=== PATIENT | male | born 1985 | race Caucasian/White ===

== ENCOUNTER 2018-03-28 16:54 | Emergency (ER) | payer SELFPAY ==
[~2018-03-28] VITALS: Ht 180.3 cm; Wt 88.5 kg
[~2018-03-28 16:54] MED LIST: HYOS0.1283 SL; ONDA8TAB13 PO
--- NOTE | 2018-03-28 17:23 | ED Upper Extremity ---
General Chief Complaint: Upper Extremity Stated Complaint: L HAND INFLAMMATION Nursing Triage Note: ARRIVED VIA AMB TO TRIAGE. COMPLAINS OF BILAT HANDS WITH THE LEFT BEING THE WORSE BEING DRY AND CRACKING FOR SEVERAL MONTHS NOW. THINKS HE HAS A UNDIAGNOSED CONDTITION. Nursing Sepsis Screen: No Definite Risk Source: patient Exam Limitations: no limitations History of Present Illness Date Seen by Provider: Mar 28, 2018 Time Seen by Provider: 17:18 Initial Comments To ER with reports of redness cracking itching and scaling to both of his hands volar and dorsal surfaces for about 3 months now. He's never had this before. He occasionally has had some lesions on his scalp. He's tried topical steroids with temporary relief but these skin conditions come back. 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 He denies any fevers or chills. Seeks care today because of the swelling associated with this and he is having difficulty clenching his fists Onset: other Severity: moderate Pain/Injury Location: bilateral hand Modifying Factors: Worse With Movement Allergies and Home Medications Allergies Coded Allergies: No Known Drug Allergies (Unverified , 09/20/12) Patient Home Medication List Home Medication List Reviewed: Yes Review of Systems Constitutional: see HPI EENTM: see HPI Respiratory: no symptoms reported Cardiovascular: no symptoms reported Genitourinary: no symptoms reported Musculoskeletal: no symptoms reported Skin: see HPI Psychiatric/Neurological: No Symptoms Reported Past Dvvbbtm-Wluifj-Dimfxh Hx Patient Social History Alcohol Use: Denies Use Recreational Drug Use: No Smoking Status: Never a Smoker Recent Foreign Travel: No Contact w/Someone Who Travel: No Recent Infectious Disease Expo: No Immunizations Up To Date Tetanus Booster (TDap): Unknown Seasonal Allergies Seasonal Allergies: Yes Past Medical History Surgeries: Yes Appendectomy Respiratory: No Cardiac: No Neurological: No Reproductive Disorders: No Sexually Transmitted Disease: No HIV/AIDS: No Genitourinary: No Gastrointestinal: No Musculoskeletal: Yes Fractures Endocrine: No Cancer: No Psychosocial: Yes Anxiety, Depression Integumentary: Yes Eczema Blood Disorders: No Adverse Reaction/Blood Tranf: No Family Medical History No Pertinent Family Hx Physical Exam Vital Signs Vital Signs - First Documented 03/28/18 17:00 Temp 96.1 Pulse 69 Resp 16 B/P (MAP) 106/80 (89) Pulse Ox 97 O2 Delivery Room Air Capillary Refill : Less Than 3 Seconds Height, Weight, BMI Height: 5'11.00" Weight: 195lbs. oz. 88.469753ir; BMI Method:Stated General Appearance: WD/WN, no apparent distress HEENT: PERRL/EOMI, normal ENT inspection Neck: non-tender, full range of motion Respiratory: no respiratory distress, no accessory muscle use Shoulder: normal inspection, non-tender Elbow/Forearm: normal inspection, non-tender Wrist: Yes normal inspection, Yes non-tender Hand: Bilateral (erythema and scaling fissuring of each hand affecting the dorsal aspect of the hand and the dorsal and volar surface of the fingers. There is some fissuring as well. Minor amount of swelling which makes it difficult for him to close his hand. Given the fissures I would have some concerns about a secondary bacterial infection so I'll prescribe some Keflex. We 'll do oral and topical steroid creams. I'll have him follow-up with dermatology.) Neurologic/Psychiatric: alert, normal mood/affect, oriented x 3 Skin: other Progress/Results/Core Measures Results/Orders Vital Signs/I&O 03/28/18 17:00 Temp 96.1 Pulse 69 Resp 16 B/P (MAP) 106/80 (89) Pulse Ox 97 O2 Delivery Room Air Blood Pressure Mean: 89 Departure Impression Primary Impression: Atopic dermatitis Qualified Codes: L20.9 - Atopic dermatitis, unspecified Disposition: 01 HOME, SELF-CARE Condition: Stable Departure-Patient Inst. Decision time for Depature: 17:22 Referrals: NO,LOCAL PHYSICIAN (PCP) Primary Care Physician BROOKE ALAS MD Patient Instructions: Eczema (Atopic Dermatitis) Add. Discharge Instructions: 1. Apply the steroid cream as directed. Take the oral steroids and oral antibiotics as directed. Call Dr. Loera on Saturday to make an appointment to be seen. All discharge instructions reviewed with patient and/or family. Voiced understanding. Scripts Betamethasone Dipropionate (Betamethasone Dipropionate) 15 Gm Cream..g. 1 GM TP BID for 6 Days, #2 TUBE Prov: ZOHAIB BURLESON APRN 03/28/18 Prednisone (Prednisone) 10 Mg Tab.ds.pk 10 MG PO DAILY, #20 EA Take 5 tabs on day 1& 2, decrease by 1 tab(10MG)daily. Prov: ZOHAIB BURLESON APRN 03/28/18 Cephalexin (Keflex) 500 Mg Capsule 500 MG PO TID, #15 CAP Prov: ZOHAIB BURLESON APRN 03/28/18 ZOHAIB BURLESON APRN Mar 28, 2018 17:23
[2018-03-28] MEDS ORDERED: PRED10TA22 PO (17:31)
[2018-03-28] MEDS ORDERED: CEPH-507 PO (17:31)
[2018-03-28] MEDS ORDERED: BETA15CR4 TP (17:33)
[2018-03-28 17:41] VITALS: BP 106/80
== END 2018-03-28 17:41 | disposition home or self-care (01) ==
LOC: EDUNIT# 16:54 → ER 16:57
DX: L20.9 Atopic dermatitis, unspecified (principal); F32.9 Major depressive disorder, single episode, unspecified; F41.9 Anxiety disorder, unspecified; Z90.49 Acquired absence of other specified parts of digestive tract
CPT/HCPCS: 99282

== ENCOUNTER 2018-08-17 04:03 | Emergency (ER) | payer SELFPAY ==
[~2018-08-17] VITALS: Ht 180.3 cm; Wt 83.9 kg
[~2018-08-17 04:03] MED LIST changes: +BETA15CR4 TP; +CEPH-507 PO; +PRED10TA22 PO
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
--- OUTSIDE RECORDS SUMMARY | 2018-08-17 04:12 | XMS REPORT ---
Author Author Javad SOPHIA Organization [facility] Address [address] [place] [address] Care Team Providers Care Head Charger Name Role Phone SOPHIA Farnsworth Unavailable PROBLEMS Type Condition ICD9-CM Code THU14-WN Code Onset Dates Condition Status SNOMED Code Problem Skin malfunction arising from mental factors 306.3 Active 397892264 Problem Disturbance of skin sensation 782.0 Active 077232799 Problem Other acne 706.1 Active 32156918 Problem Contact dermatitis and other eczema, due to unspecified cause 692.9 Active 92134982 Problem Attention deficit disorder of childhood with hyperactivity 314.01 Active 897977105 Problem Routine general medical examination at health care facility V70.0 Active 439534692 Problem Pain in joint, shoulder region 719.41 Active 714214085 Problem Generalized anxiety disorder F41.1 Active 70402097 Problem ADHD, predominantly inattentive type F90.0 Active 97050977 Problem Screening examination for venereal disease V74.5 Active 574046137 Problem Acute upper respiratory infections of unspecified site 465.9 Active 69705177 Problem Generalized anxiety disorder 300.02 Active 94858446 Problem Social phobia 300.23 Active 64345359 ALLERGIES Substance Reaction Event Type Date Status Penicillin V Potassium Unknown Drug Allergy Mar, Active SOCIAL HISTORY No smoking Hx information available PLAN OF CARE Activity Details Follow Up 4 Weeks Reason: VITAL SIGNS Height 71 in 2016-03-15 Weight 193.9 lbs 2016-03-15 Heart Rate 64 bpm 2016-03-15 Respiratory Rate 16 2016-03-15 BMI 27.04 kg/m2 2016-03-15 Blood pressure systolic 113 mmHg 2016-03-15 Blood pressure diastolic 67 mmHg 2016-03-15 MEDICATIONS Medication Instructions Dosage Frequency Start Date End Date Duration Status Atomoxetine HCl 25 MG Orally daily 1 capsule every am X 2 weeks then 2 caps every am 24h Mar, 30 day(s) Active RESULTS No Results PROCEDURES Procedure Date Ordered Related Diagnosis Body Site MH Office Visit, Est Pt., Level 4 Mar 15, 2016 IMMUNIZATIONS No Known Immunizations
--- OUTSIDE RECORDS SUMMARY | 2018-08-17 04:12 | XMS REPORT ---
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 Name Role Phone KEYLA MARTINEZ Unavailable PROBLEMS Type Condition ICD9-CM Code MJP21-CH Code Onset Dates Condition Status SNOMED Code Problem Contact dermatitis and other eczema, due to unspecified cause 692.9 Active 41942910 Problem Attention deficit disorder of childhood with hyperactivity 314.01 Active 187522200 Problem Acute upper respiratory infections of unspecified site 465.9 Active 87032043 Problem History of attention deficit hyperactivity disorder (ADHD) Z86.59 Active 252065653 Problem Generalized anxiety disorder F41.1 Active 92663037 Problem Social phobia 300.23 Active 58541438 Problem Skin malfunction arising from mental factors 306.3 Active 195953224 Problem ADHD, predominantly inattentive type F90.0 Active 85513896 Problem Generalized anxiety disorder 300.02 Active 16444161 Problem Routine general medical examination at health care facility V70.0 Active 979491694 Problem Disturbance of skin sensation 782.0 Active 509825775 Problem Pain in joint, shoulder region 719.41 Active 150757308 Problem Screening examination for venereal disease V74.5 Active 214947615 Problem Other acne 706.1 Active 34699637 ALLERGIES Substance Reaction Event Type Date Status Penicillin V Potassium Unknown Drug Allergy Aug, Active ENCOUNTERS Encounter Location Date Diagnosis [facility] [id number], [place] [address] Aug, History of attention deficit hyperactivity disorder (ADHD) Z86.59 and Hx of high risk medication treatment Z92.29 [facility] [id number], [place] [address] Aug, Allergic contact dermatitis, unspecified trigger L23.9 [facility] [id number], [place] [address] Mar, ADHD, predominantly inattentive type F90.0 and Generalized anxiety disorder F41.1 [facility] [id number] [place] [address] Jan, Generalized anxiety disorder F41.1 and ADHD, predominantly inattentive type F90.0 [facility] [id number] [place] [address] Oct, Post-nasal drip 784.91 ; Cough 786.2 and Environmental and seasonal allergies 477.8 [facility] [id number] [place] [address] Jun, [facility] [id number] [place] [address] Jun, [facility] [id number] [place] [address] May, [facility] [id number] [place] [address] May, [facility] [id number] [place] [address] Jan, [facility] [id number] [place] [address] Jan, [facility] [id number] [place] [address] Dec, [facility] [id number] [place] [address] Dec, [facility] [id number] [place] [address] Nov, [facility] [id number] [place] [address] Aug, [facility] [id number] [place] [address] May, [facility] [id number] [place] [address] May, [facility] [address], [place] [address] May, [facility] [address], [place] [address] May, [facility] [address], [place] [address] July, [facility] [address], [place] [address] July, [facility] [address] [place] [address] July, [facility] [address], [place] [address] July, [facility] [address], [place] [address] May, [facility] [address], [place] [address] Apr, [facility] [address], [place] [address] Jun, [facility] [address], [place] [address] Jun, [facility] [id number], [place] [address] Mar, [facility] [id number], [place] [address] Jan, IMMUNIZATIONS No Known Immunizations SOCIAL HISTORY Never Assessed REASON FOR VISIT Physical - PT wanted a general checkup-ROMERO dao, pt have rash on hands and ric[address] st PLAN OF CARE Activity Details Follow Up prn Reason:rash. Make apt with me for ADHD/lab work VITAL SIGNS Height 71 in 2017-09-25 Weight 202.3 lbs 2017-09-25 Temperature 97.5 degrees Fahrenheit 2017-09-25 Heart Rate 68 bpm 2017-09-25 Respiratory Rate 16 2017-09-25 BMI 28.21 kg/m2 2017-09-25 Blood pressure systolic 102 mmHg 2017-09-25 Blood pressure diastolic 64 mmHg 2017-09-25 MEDICATIONS Medication Instructions Dosage Frequency Start Date End Date Duration Status Clobetasol Propionate 0.05 % Externally Twice a day to affected area 1 application to affected area Aug, Sep, 10 day(s) Active Sudafed 24 Hour 240 MG Orally Once a day 1 tablet as needed 24h Oct, 30 day(s) Not-Taking Atomoxetine HCl 25 MG Orally daily 1 capsule every am X 2 weeks then 2 caps every am 24h Mar, 30 day(s) Not-Taking RESULTS No Results PROCEDURES No Known procedures INSTRUCTIONS MEDICATIONS ADMINISTERED No Known Medications MEDICAL (GENERAL) HISTORY Type Description Date Medical History ADHD Surgical History Appendectomy Hospitalization History Surgery
--- OUTSIDE RECORDS SUMMARY | 2018-08-17 04:12 | XMS REPORT | Continuity of Care Document ---
Author Organization Unknown Address Unknown Allergies Active Description Code Type Severity Reaction Onset Reported/Identified Relationship to Patient Clinical Status Yes Penicillins Drug Allergy 07/19/2011 Yes Penicillins Drug Allergy N/A N/A 07/19/2011 Yes No Known Drug Allergies [id number] Drug Allergy Unknown N/A 09/20/2012 Medications There is no data. Problems Date Dx Coded Attending Type Code Diagnosis Diagnosed By 01/07/2008 POLO ALEJO PSYD V74.1 SCREENING EXAMINATION FOR PULMONARY TUBERCULOSIS 01/07/2008 V74.1 SCREENING EXAMINATION FOR PULMONARY TUBERCULOSIS 01/07/2008 V74.1 SCREENING EXAMINATION FOR PULMONARY TUBERCULOSIS 01/07/2008 RACHEL BELL DO V74.1 SCREENING EXAMINATION FOR PULMONARY TUBERCULOSIS 01/07/2008 RACHEL BELL DO V74.1 SCREENING EXAMINATION FOR PULMONARY TUBERCULOSIS 01/07/2008 DANIEL ASTORGA APRN A V74.1 SCREENING EXAMINATION FOR PULMONARY TUBERCULOSIS 07/19/2011 POLO ALEJO PSYD 306.3 SKIN DISORDER ARISING FROM MENTAL FACTORS 07/19/2011 POLO ALEJO PSYD 706.1 OTHER ACNE 07/19/2011 306.3 SKIN DISORDER ARISING FROM MENTAL FACTORS 07/19/2011 706.1 OTHER ACNE 07/19/2011 306.3 SKIN DISORDER ARISING FROM MENTAL FACTORS 07/19/2011 706.1 OTHER ACNE 07/19/2011 RACHEL BELL DO 306.3 SKIN DISORDER ARISING FROM MENTAL FACTORS 07/19/2011 RACHEL BELL DO 706.1 OTHER ACNE 07/19/2011 RACHEL BELL DO 306.3 SKIN DISORDER ARISING FROM MENTAL FACTORS 07/19/2011 RACHEL BELL DO 706.1 OTHER ACNE 07/19/2011 DANIEL ASTORGA APRN A 306.3 SKIN DISORDER ARISING FROM MENTAL FACTORS 07/19/2011 DANIEL ASTORGA APRN A 706.1 OTHER ACNE 04/15/2012 POLO ALEJO PSYD 300.02 AN GEN ANXIETY 04/15/2012 POLO ALEJO PSYD L 300.23 AN SOCIAL PHOBIA 04/15/2012 300.02 AN GEN ANXIETY 04/15/2012 300.23 AN SOCIAL PHOBIA 04/15/2012 300.02 AN GEN ANXIETY 04/15/2012 300.23 AN SOCIAL PHOBIA 04/15/2012 BELL DO, RACHEL K 300.02 AN GEN ANXIETY 04/15/2012 BELL DO, RACHEL K 300.23 AN SOCIAL PHOBIA 04/15/2012 BELL DO, RACHEL K 300.02 AN GEN ANXIETY 04/15/2012 BELL DO, RACHEL K 300.23 AN SOCIAL PHOBIA 04/15/2012 DANIEL ASTORGA APRN A 300.02 AN GEN ANXIETY 04/15/2012 STAR ASTORGA APRNIDI A 300.23 AN SOCIAL PHOBIA 08/15/2012 465.9 UPPER RESPIRATORY INFECTION 08/15/2012 782.0 numbness (hypesthesia) 08/15/2012 V74.5 visit for: screening exam STD 08/15/2012 465.9 UPPER RESPIRATORY INFECTION 08/15/2012 782.0 numbness (hypesthesia) 08/15/2012 V74.5 visit for: screening exam STD 08/15/2012 BELL DO RACHEL K 465.9 UPPER RESPIRATORY INFECTION 08/15/2012 BELL DO, RACHEL K 782.0 numbness (hypesthesia) 08/15/2012 BELL DO RACHEL K V74.5 visit for: screening exam STD 08/15/2012 BELL DO RACHEL K 465.9 UPPER RESPIRATORY INFECTION 08/15/2012 BELL DO RACHEL K 782.0 numbness (hypesthesia) 08/15/2012 BELL DO RACHEL K V74.5 visit for: screening exam STD 08/15/2012 STAR ASTORGA APRNIDI A 465.9 UPPER RESPIRATORY INFECTION 08/15/2012 STAR ASTORGA APRNIDI A 782.0 numbness (hypesthesia) 08/15/2012 STAR ASTORGA APRNIDI A V74.5 visit for: screening exam STD 09/21/2012 DELPHINE FALLON, RADHA Gomez Ot 276.1 HYPOSMOLALITY 09/21/2012 DELPHINE FALLON, RADHA Gomez Ot 540.9 ACUTE APPENDICITIS NOS 01/25/2014 DANIEL ASTORGA APRN 692.9 CONTACT DERMATITIS AND OTHER ECZEMA UNSPECIFIED CAUSE 04/07/2015 INDRA TOURE Ot R10.84 GENERALIZED ABDOMINAL PAIN 04/07/2015 INDRA TOURE Ot R11.2 NAUSEA WITH VOMITING, UNSPECIFIED 04/07/2015 INDRA TOURE Ot R19.7 DIARRHEA, UNSPECIFIED 04/07/2015 INDRA TOURE Ot R50.9 FEVER, UNSPECIFIED Procedures Code Description [place] [address] PSYCH DIAGNOSTIC EVALUATION 04/15/2012 10904 ROUTINE VENIPUNCTURE 08/15/2012 81403 A1C (IN-HOUSE) 08/15/2012 25235 CBC 08/15/2012 93274 CMP 08/15/2012 6692339 GFR CALC (RESULT ONLY) 08/15/2012 15230 TSH 08/16/2012 84582 VIT B 12 08/16/2012 34443 HEPATITIS PROFILE 08/16/2012 60876 HIV ANTIBODIES (RML) 08/16/2012 34563 SYPHILIS TEST 08/16/2012 34076 UA W/ CULTURE IF INDICATED 08/28/2012 61501 GC/CHLAM URINE (STATE) 08/28/2012 47.01 LAPAROSCOP APPENDECTOMY 09/20/2012 06860 TB TEST INTRADERMAL 05/18/2013 38113 TB TEST INTRADERMAL 05/25/2013 32198 ROUTINE VENIPUNCTURE 01/25/2014 53138 SYPHILLIS-STATE LAB 01/25/2014 07122 HIV (STATE LAB) 01/25/2014 99366 GC/CHLAM URINE (STATE) 01/25/2014 Results There is no data. Encounters ACCT No. Visit Date/Time Discharge Status Pt. Type Provider Facility Loc./Unit Complaint [id number] 01/25/2014 15:15:00 01/25/2014 23:59:59 CLS Outpatient STAR ASTORGA APRNHEIDY Amaro [id number] 05/25/2013 14:03:00 05/25/2013 23:59:59 CLS Outpatient RACHEL BELL DO [id number] 05/18/2013 12:49:00 05/18/2013 23:59:59 CLS Outpatient RACHEL BELL DO [id number] 04/15/2012 11:57:00 04/15/2012 23:59:59 CLS Outpatient POLO ALEJO PSYD [id number] 08/28/2012 14:57:00 Document Registration [id number] 08/15/2012 11:12:00 Document Registration [id number] 06/26/2018 16:00:00 06/26/2018 23:59:59 [facility] [id number] 03/28/2018 16:57:00 03/28/2018 17:41:00 DIS Emergency ZOHAIB BURLESON APRN [facility] ER L HAND INFLAMMATION [id number] 04/07/2015 19:26:00 04/07/2015 21:07:00 DIS Emergency INDRA TOURE [facility] ER [id number] 09/20/2012 20:45:00 09/21/2012 11:55:00 DIS Inpatient DELPHINE FALLON, RADHA Gomez [facility] SURGICAL ACUTE APPENDICITIS [id number] 08/17/2018 04:07:00 ACT Emergency FIFI MCCRARY DO [facility] ER FS VOLUNTARY MENTAL HEALTH SCREENIN/LACERATION ON RIG
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
[2018-08-17 04:49] VITALS: BP 118/79
--- NOTE | 2018-08-17 06:25 | Diagnostic Imaging Report ---
INDICATION: Pain. Two views of the right hand were obtained. FINDINGS: The osseous alignment is normal. There is no acute fracture or dislocation. The soft tissues are unremarkable. IMPRESSION: No acute abnormality. Dictated by: Dictated on workstation # [id number]
== END 2018-08-17 04:49 | disposition home or self-care (01) ==
LOC: EDUNIT# 04:03 → ER FS 04:07
DX: S61.216A Laceration without foreign body of right little finger without damage to nail, initial encounter (principal); S61.511A Laceration without foreign body of right wrist, initial encounter; F41.9 Anxiety disorder, unspecified; F32.9 Major depressive disorder, single episode, unspecified; Z90.49 Acquired absence of other specified parts of digestive tract; W26.8XXA Contact with other sharp object(s), not elsewhere classified, initial encounter
CPT/HCPCS: 73120

== ENCOUNTER 2021-05-06 10:59 | Emergency (ER) | payer SELFPAY ==
[~2021-05-06] VITALS: Ht 180 cm; Wt 96.0 kg
[2021-05-06] MEDS ORDERED: ERYTHROMYCIN OPHTH OINT 1 GM (SINGLE USE) TUBE OP STA (11:11)
[2021-05-06 11:13] VITALS: BP 155/81
--- NOTE | 2021-05-06 11:17 | ED EENT ---
History of Present Illness General Chief Complaint: Eye Problems Stated Complaint: ALLERGIES/GIOVANI EYE REDNESS Source: patient Exam Limitations: no limitations History of Present Illness Date Seen by Provider: May 06, 2021 Time Seen by Provider: 11:00 Initial Comments 35yoM with no significant PMH coming in due to red and itchy eyes. This has been going on for a couple of weeks. He says he has new guinea pigs that he believes he is allergic to. He says he is allergic to a lot of animals. Started right after he was around them. Benadryl does seem to help the itchiness which is moderate, constant, and worsening. He did finally just get rid of the animals. He cannot think of any new foods, soaps, or anything else he is around that could be causing this. Denies any fever, chest pain, vision changes, shortness of breath, abdominal pain, nausea, vomiting, diarrhea, weakness, numbness, or any other concerns. He says he does not have a rash anywhere else on his body. Allergies and Home Medications Allergies Coded Allergies: No Known Drug Allergies (Unverified , 08/17/18) Patient Home Medication List Home Medication List Reviewed: Yes Betamethasone Dipropionate (Betamethasone Dipropionate) 15 Gm Cream..g., 1 GM TP BID Prescribed by: ZOHAIB BURLESON on 03/28/18 173 Cephalexin (Keflex) 500 Mg Capsule, 500 MG PO TID Prescribed by: ZOHAIB BURLESON on 03/28/18 173 Prednisone (Prednisone) 10 Mg Tab.ds.pk, 10 MG PO DAILY Prescribed by: ZOHAIB BURLESON on 03/28/18 173 Review of Systems Review of Systems Constitutional: No chills, No fever Eyes: Denies Blurred Vision Ears: Denies Dizziness Nose: denies congestion Mouth: no symptoms reported Throat: no symptoms reported; denies pain, denies swelling, denies neck stiffness Respiratory: no symptoms reported; No short of breath Cardiovascular: no symptoms reported Gastrointestinal: no symptoms reported Musculoskeletal: no symptoms reported Skin: rash Neurological: No Symptoms Reported Hematologic/Lymphatic: No Symptoms Reported Immunological/Allergic: no symptoms reported All Other Systems Reviewed Negative Unless Noted: Yes Past Szrwdku-Znzjrm-Rfvxlf Hx Patient Social History Tobacco Use?: No Immunizations Up To Date Tetanus Booster (TDap): Less than 5yrs Seasonal Allergies Seasonal Allergies: Yes Past Medical History Surgeries: Yes Appendectomy Respiratory: No Cardiac: No Neurological: No Reproductive Disorders: No Sexually Transmitted Disease: No HIV/AIDS: No Genitourinary: No Gastrointestinal: No Musculoskeletal: Yes Fractures Endocrine: No HEENT: No Cancer: No Psychosocial: Yes Anxiety, Depression Integumentary: Yes Eczema Blood Disorders: No Adverse Reaction/Blood Tranf: No Family Medical History No Pertinent Family Hx Visual Acuity : Vision Acuity Degree: 20/20 Physical Exam Height, Weight, BMI Height: 5'11.00" Weight: 185lbs. oz. 83.576010xk; BMI Method:Stated General Appearance: WD/WN, no apparent distress Eyes: bilateral eye PERRL, bilateral eye EOMI, bilateral eye other (Bilateral eyes with erythematous, crusting, blanching skin around the eyelids, no edema periorbitally, cobblestoning on the inner conjunctive a, otherwise his conjunctive are white) Ears: bilateral ear auricle normal Nose: normal inspection Mouth/Throat: normal mouth inspection, pharynx normal Neck: non-tender, full range of motion, supple, normal inspection Cardiovascular: regular rate, rhythm, no edema, no murmur Respiratory: chest non-tender, lungs clear, normal breath sounds, no respiratory distress, no accessory muscle use Gastrointestinal: normal bowel sounds, non tender, soft; No guarding Neurologic/Psychiatric: furniture servicer II-XII nml as tested, no motor/sensory deficits, alert, normal mood/affect Skin: normal color, warm/dry Progress/Results/Core Measures Progress Progress Note : Progress Note 35-year-old male with above history coming in due to red and itchy eyes. ABCs were intact and vitals were stable on presentation. Visual acuity normal and his exam is consistent with an allergic dermatitis around his eyes. We will give him erythromycin ointment to prevent chance of infection. I recommend gentle moisturization with something such as petroleum around the skin of his eyes and we will send a Medrol Dosepak given the extent of it. We will also recommend cetirizine and avoidance of triggers which right now seems to be the guinea pigs that are gone. I told him if he does not have significant improvement in the next several days then he needs to come back to be seen again. He does not have any involvement in his lips, genitals, hands, and otherwise has no other red flags. I believe he is stable for discharge with outpatient follow-up. He was sent home with strict return precautions. Departure Impression Primary Impression: Allergic conjunctivitis Qualified Codes: H10.13 - Acute atopic conjunctivitis, bilateral Disposition: 01 HOME, SELF-CARE Condition: Stable Departure-Patient Inst. Decision time for Depature: 11:18 Referrals: ENRIQUE ESTEVEZ APRN (PCP/Family) Primary Care Physician Patient Instructions: Conjunctivitis (Noninfectious Pinkeye) Add. Discharge Instructions: Please take the steroids as directed. Also please take the Zyrtec which is also known as cetirizine for at least the next month. Use something gentle to moisturize your face such as regular petroleum jelly, Aquaphor, or Cerave. Take progress footers at least every other day that way if you were to be seen again someone could see the progression. If things are not significantly better within the next week then I recommend being seen again by a Dr. Scripts Erythromycin Base (Erythromycin Opthalmic Ointment) 1 Gm Oint...g. 0 OP Q12H for 7 Days, #1 EA 1/2 inch under each eye, rub excess on eyelids Prov: IJEOMA CROUCH MD 05/06/21 Cetirizine HCl (Cetirizine HCl) 10 Mg Tablet 10 MG PO DAILY for 30 Days, #30 TAB Prov: IJEOMA CROUCH MD 05/06/21 Methylprednisolone (Methylprednisolone Dose Pack) 4 Mg Tab.ds.pk 4 MG PO UD for 6 Days, #21 PKG PER DOSE PACK INSTRUCTIONS Prov: IJEOMA CROUCH MD 05/06/21 Work/School Note: Work Release Form Date Seen in the Emergency Department: May 06, 2021 Return to Work: May 07, 2021 Restrictions: No Restrictions IJEOMA CROUCH MD May 06, 2021 11:17
[2021-05-06] MEDS ORDERED: METH4TAB10 PO (11:22)
[2021-05-06] MEDS ORDERED: CETI10TA17 PO (11:22)
[2021-05-06] MEDS ORDERED: ERYT1OIN6 OP (11:22)
== END 2021-05-06 11:25 | disposition home or self-care (01) ==
LOC: EDUNIT# 10:59 → ER FS 11:02
DX: H10.13 Acute atopic conjunctivitis, bilateral (principal)
CPT/HCPCS: 99281

== ENCOUNTER 2021-05-17 10:28 | Emergency (ER) | payer SELFPAY ==
[~2021-05-17 10:28] MED LIST changes: +CETI10TA17 PO; +ERYT1OIN6 OP; +METH4TAB10 PO
[2021-05-17] MEDS ORDERED: methylPREDNISolone 80 MG/ML (DEPO MEDROL) VIAL IM STA (11:24)
[2021-05-17 11:25] VITALS: BP 135/79
--- NOTE | 2021-05-17 11:32 | ED EENT ---
History of Present Illness General Chief Complaint: Eye Problems Stated Complaint: GIOVANI EYE SWELLING/REDNESS Nursing Triage Note: BILATERAL REDNESS, ITCHING, AND SWELLING OF THE EYES DUE TO ALLERGIES. PT REPORTS HE WANTS A STEROID SHOT. Source: patient History of Present Illness Date Seen by Provider: May 17, 2021 Time Seen by Provider: 10:59 Initial Comments 35-year-old male presenting with complaint of recurrent redness, swelling, itching to bilateral eyelids. He states that he was seen at the beginning of the month and received prednisone. This had helped with his symptoms but then the swelling and irritation came back. He thought that it might be related to guinea pigs that he had gotten for his children. He also had started taking fish oil again which she had forgotten that he was allergic to. He has previously had similar symptoms in the past and had received steroid shots in the clinic with Enrique Estevez. He states after that that his symptoms had cleared up until now. He denies any difficulty breathing, swallowing, change in his vision, other areas of skin irritation other than his hands which get dried out with washing frequently. He has been trying some hxvh-nhe-[id number] antihistamine with little improvement. Timing/Duration: gradual Severity: moderate Location: eye (R), eye (L) Prearrival Treatment: over the counter meds, prescription meds (Prednisone at the beginning of the month) Associated Symptoms: No change in hearing, No cough, No drooling, No ear drainage, No facial pain/swelling, No fever, No malaise, No nasal congestion/drainage, No poor fluid intake, No poor solids intake, No sinus infection, No sore throat, No tooth pain, No voice change Allergies and Home Medications Allergies Coded Allergies: No Known Drug Allergies (Unverified , 08/17/18) Patient Home Medication List Home Medication List Reviewed: Yes Betamethasone Dipropionate (Betamethasone Dipropionate) 15 Gm Cream..g., 1 GM TP BID Prescribed by: ZOHAIB BURLESON on 03/28/18 173 Cephalexin (Keflex) 500 Mg Capsule, 500 MG PO TID Prescribed by: ZOHAIB BURLESON on 03/28/18 173 Cetirizine HCl (Cetirizine HCl) 10 Mg Tablet, 10 MG PO DAILY Prescribed by: IJEOMA CROUCH on 05/06/21 1122 Erythromycin Base (Erythromycin Opthalmic Ointment) 1 Gm Oint...g., 0 OP Q12H Prescribed by: IJEOMA CROUCH on 05/06/21 112 Methylprednisolone (Methylprednisolone Dose Pack) 4 Mg Tab.ds.pk, 4 MG PO UD Prescribed by: IJEOMA CROUCH on 05/06/21 112 Prednisone (Prednisone) 10 Mg Tab.ds.pk, 10 MG PO DAILY Prescribed by: ZOHAIB BURLESON on 03/28/18 1731 Review of Systems Review of Systems Constitutional: No chills, No fever Eyes: See HPI; Denies Blurred Vision; Inflammation (Bilateral eyelids); Denies Pain, Denies Photophobia, Denies Vision Changes Ears: No Symptoms Reported Nose: no symptoms reported Mouth: no symptoms reported Throat: no symptoms reported Respiratory: no symptoms reported Cardiovascular: no symptoms reported Gastrointestinal: no symptoms reported Musculoskeletal: no symptoms reported Skin: see HPI, change in color (Redness and irritation to bilateral eyelids) Neurological: No Symptoms Reported Hematologic/Lymphatic: No Symptoms Reported Past Ojrxzte-Gekxtv-Ujlfjr Hx Patient Social History Tobacco Use?: No Use of E-Cig and/or Vaping dev: No Substance use?: No Alcohol Use?: No Pt feels they are or have been: No Immunizations Up To Date Tetanus Booster (TDap): Less than 5yrs Seasonal Allergies Seasonal Allergies: Yes Past Medical History Surgeries: Yes Appendectomy Respiratory: No Cardiac: No Neurological: No Reproductive Disorders: No Sexually Transmitted Disease: No HIV/AIDS: No Genitourinary: No Gastrointestinal: No Musculoskeletal: Yes Fractures Endocrine: No HEENT: No Cancer: No Psychosocial: Yes Anxiety, Depression Integumentary: Yes Eczema Blood Disorders: No Adverse Reaction/Blood Tranf: No Family Medical History No Pertinent Family Hx Physical Exam Vital Signs Vital Signs - First Documented 05/17/21 10:30 Temp 36.6 Pulse 77 Resp 18 B/P (MAP) 135/79 (97) Pulse Ox 97 O2 Delivery Room Air Height, Weight, BMI Height: 5'11.00" Weight: 185lbs. oz. 83.976463rq; 29.00 BMI Method:Stated General Appearance: WD/WN, no apparent distress Eyes: bilateral eye PERRL, bilateral eye EOMI, bilateral eye lid inflammation, bilateral eye other (Redness and swelling with inflammation to bilateral eyelids. There is no conjunctivitis or conjunctival hemorrhage noticed) Neck: non-tender, full range of motion Cardiovascular: normal peripheral pulses Neurologic/Psychiatric: alert, oriented x 3 Skin: warm/dry, other (Erythema and inflammation to bilateral eyelids) Progress/Results/Core Measures Results/Orders My Orders Orders - ANNETTE MAZA MD Dexamethasone Injection (Decadron Inje (05/17/21 11:24) Methylprednisolone Acetate Inj (Depo-Med (05/17/21 11:24) Vital Signs/I&O 05/17/21 05/17/21 10:30 11:25 Temp 36.6 36.6 Pulse 77 77 Resp 18 18 B/P (MAP) 135/79 (97) 135/79 Pulse Ox 97 97 O2 Delivery Room Air Room Air Blood Pressure Mean: 97 Progress Progress Note : Progress Note Counseled patient that we could try steroid injections with Decadron and Depo- Medrol. In addition to that he could increase the Zyrtec dosing to 40 mg either once a day or 20 mg twice a day. If he still not seeing any improvement then check back through the clinic as they may need to do allergy testing or referral Departure Impression Primary Impression: Allergic reaction Qualified Codes: T78.40XD - Allergy, unspecified, subsequent encounter Additional Impressions: Inflammation of right eyelid Inflammation of left eyelid Disposition: 01 HOME, SELF-CARE Condition: Stable Departure-Patient Inst. Decision time for Depature: 11:30 Referrals: ENRIQUE ESTEVEZ APRN (PCP) Primary Care Physician [facility] (Family) Primary Care Physician Patient Instructions: Allergic Reaction ED Add. Discharge Instructions: The steroid shots from today will stay in your system for the next 10 to 14 days to help the inflammation and irritation to your eyelids clear up. You could also increase the dose of antihistamine that you are taking to help with redness, swelling and itching. Zyrtec (Cetirizine) 10 mg pills could be taken at 40 mg once a day or 20 mg twice a day for the next 7 to 10 days to help treat for allergies and itching. You could try cool compresses on your eyes to help with inflammation and irritation as well. If not improving then check with clinic as they may need to do allergy testing or have you check with continuous improvement specialist. All discharge instructions reviewed with patient and/or family. Voiced understanding. ANNETTE MAZA MD May 17, 2021 11:32
== END 2021-05-17 11:36 | disposition home or self-care (01) ==
LOC: EDUNIT# 10:28 → ER FS 10:30
DX: T78.49XA Other allergy, initial encounter (principal); H01.9 Unspecified inflammation of eyelid
CPT/HCPCS: 99284